=== PATIENT | female | born 1980 | race Hispanic/Latino ===

== ENCOUNTER 2018-12-02 14:46 | Outpatient (CLI) | payer MEDICAID ==
--- NOTE | 2018-12-02 15:29 | ULT ---
Transabdominal pelvic ultrasound INDICATION: IUD displacement TECHNIQUE: Grayscale, color Doppler and spectral Doppler images were obtained of the pelvis via trans abdominal approach FINDINGS: The uterus measures 8.5 x 6.5 x 4 cm. There is a thin echogenic linear structure seen within the endo metrial canal that protrudes toward the cornua of the upper uterus most consistent with a known IUD device. This appears centered within the upper endometrial canal in the expected location. The endometrial stripe is 0.64 cm. The right ovary measures 2.8 x 2 x 2.6 cm. Left ovary measures 2.7 x 2.4 x 1.5 cm. There is normal fl ow to both ovaries. IMPRESSION: IUD seen within the central aspect the endometrial canal.
== END 2018-12-02 14:47 | disposition home or self-care (01) ==
LOC: BICULT 14:46
DX: T83.32XA Displacement of intrauterine contraceptive device, initial encounter (principal)
CPT/HCPCS: 76856; 93976